=== PATIENT | female | born 1945 | race Caucasian/White ===

== ENCOUNTER → 2018-06-26 | Outpatient (CLI) | payer MEDICARE, BC | LOC: NC 11:06 | PROVIDERS: ATTEND Internal Medicine | DX: E03.9 Hypothyroidism, unspecified (principal) ==

== ENCOUNTER 2018-10-13 11:17 | Emergency (ER) | payer MEDICARE, BC ==
--- NOTE | 2018-10-13 11:47 | ED.PDOC ---
History of Present Illness - General Chief Complaint: Trauma Stated Complaint: fall Time Seen by Provider: 10/13/18 11:46 Source: patient Exam Limitations: no limitations - History of Present Illness Initial Comments: Velma Palacio 72 y/o female stated that she fell in her bathroom last night on her back and right side; helped her get up.Stated she several alcoholic beverages before incident.Came to er wirh dull paisn on he right shoulder,right lower rib cage,pelvis and hips.Denies any injuries elsewhere.No LOC,no dizziness ,no headaches,no blurry vision,no nausea/vomiting,speech fluent. Occurred: other - last night at home Severity: moderate Pain Location: chest, pelvis, back Method of Injury: fall Improving Factors: rest Worsening Factors: movement Loss of Consciousness: no loss of consciousness Associated Symptoms (Fall): other - see hpi Allergies/Adverse Reactions: Allergies NO KNOWN ALLERGY Allergy (Verified 10/23/15 06:36) Home Medications: Ambulatory Orders Acetamin W/Cod #3 Tab [Tylenol w/CODEINE #3] 1 ea PO TID PRN #14 tab 10/13/18 Citalopram Hydrobromide [Citalopram] 20 mg PO DAILY 10/13/18 Gabapentin 100 mg PO DAILY 10/13/18 Memantine [Namenda] 28 mg PO DAILY 10/13/18 Review of Systems - Review of Systems Musculoskeletal: States: see HPI All other Systems: Reviewed and Negative, No Change from Baseline Past Medical History (General) - Patient Medical History Hx Dementia: Yes Hx Hypertension: Yes Surgical History: cholecystectomy, other - hysterectomy,c-sections,knee bilateral - Vaccination History Hx Influenza Vaccination: Yes - Social History Hx Tobacco Use: No Hx Alcohol Use: Yes Hx Substance Use: No Hx Substance Use Treatment: No Hx Depression: No - Female History Patient : No Family Medical History - Family History Mother Family History: Unknown Living Status: Unknown Hx Cardiac Disease: Yes - dad Hx Family;Other: Alzheimerz Disease-sister Physical Exam - Physical Exam General Appearance: Alert, Comfortable, No apparent distress Head Injury: no evidence of injury Eye Exam: bilateral normal ENT Exam: hearing grossly normal, no evidence of ENT injury, no dental injury Neck Exam: non-tender, full range of motion, normal alignment, normal inspection Cardiovascular/Respiratory: regular rate, rhythm, no M/R/G, normal peripheral pulses, no JVD, other - tender to palpate right lower rib cage,no bruising Gastrointestinal/Abdominal: normal bowel sounds, non tender, soft, no organomegaly Back Exam: no CVA tenderness, no vertebral tenderness Extremity Exam: no evidence of injury, normal range of motion, no pedal edema, bony-point tenderness - both hips and pelvis Neurologic: no motor/sensory deficits, alert, oriented x 3 Skin Exam: normal color, warm/dry - Ritu Coma Score Best Eye Response (Tucker): (4) open spontaneously Best Verbal Response (Tucker): (5) oriented Best Motor Response (Tucker): (6) obeys commands Tucker Total: 15 Progress - Progress Progress: 10/13/18 12:13 Vital Signs - 8 hr 10/13/18 11:22 Temperature 98.2 F Pulse Rate [ 58 L left brachial] Respiratory 16 Rate Blood Pressure 160/88 [left brachial] O2 Sat by Pulse 97 Oximetry - Results/Orders Results/Orders: Discuss all x-ray result with patient - EKG/XRAY/CT XRAY: chest - ribs -subtle fracture right rib 9-10 Departure - Departure Clinical Impression: Pain of multiple sites Fall at home Qualifiers: Encounter type: initial encounter Qualified Code(s): W19.XXXA - Unspecified fall, initial encounter; Y92.009 - Unspecified place in unspecified non- institutional (private) residence as the place of occurrence of the external cau se Fracture of two ribs Qualifiers: Encounter type: initial encounter Fracture type: closed Laterality: right Qualified Code(s): S22.41XA - Multiple fractures of ribs, right side, initial encounter for closed fracture Time of Disposition: 13:40 Disposition: Discharge to Home or Self Care Condition: Fair Departure Forms: ED Discharge - Pt. Copy, Patient Portal Self Enrollment Instructions: Rib Fractures in Adults, Rib Fracture (DC) Referrals: CASI SIMMS [Primary Care Provider] - 1-2 Weeks Prescriptions: Acetamin W/Cod #3 Tab [Tylenol w/CODEINE #3] 1 ea PO TID PRN #14 tab PRN Reason: Pain Home Medications: Ambulatory Orders Acetamin W/Cod #3 Tab [Tylenol w/CODEINE #3] 1 ea PO TID PRN #14 tab 10/13/18 Citalopram Hydrobromide [Citalopram] 20 mg PO DAILY 10/13/18 Gabapentin 100 mg PO DAILY 10/13/18 Memantine [Namenda] 28 mg PO DAILY 10/13/18 Additional Instructions: May use over the counter ASPERCREME with LIDOCAINE Cream-apply to affected area 3 x a day until better;Follow up with primary MD 21 Oct 2018 for recheck
[2018-10-13 11:54] VITALS: TEMP 98.2
--- NOTE | 2018-10-13 12:56 | RAD ---
EXAM DESCRIPTION: Cervical Spine,3 Views CLINICAL HISTORY: fall/pain COMPARISON: None FINDINGS: 3 views of the cervical spine. Study partially limited due to patient body habitus. The visualized alignment of the cervical spine appears appropriate. No locked or perched facets are demonstrated. C1-C2 articulations are maintained. Multilevel degenerative disc height loss with endplate sclerosis and uncovertebral hypertrophy. Multilevel facet arthritis of the cervical spine. Precervical soft tissues are within normal limits. IMPRESSION: No acute radiographic abnormality. Complex multilevel degenerative spondylosis of the cervical spine. Electronically signed by: Erlin Gagnon MD 10/13/2018 12:54 PM CDT
--- NOTE | 2018-10-13 13:00 | RAD ---
Study: Frontal and oblique views of the ribs. Indication: fall/pain Comparison: None. Impression: Subtle fractures of the lateral aspects of the right ninth and 10th ribs noted. No pneumothorax identified. Electronically signed by: Edy Steen MD 10/13/2018 12:58 PM CDT
--- NOTE | 2018-10-13 13:00 | RAD ---
Single frontal view pelvis Indication: fall/pain Comparison: None. Impression: No displaced acute pelvic fracture identified. Evaluation for fracture is limited given the degree of osteopenia. If high clinical concern for acute fracture, correlation with MRI recommended given its greater sensitivity in the osteopenic patient. If the patient cannot tolerate MRI imaging or more urgent imaging is required, CT could be performed, however it is less sensitive in the osteopenic patient when compared to MRI. Mild bilateral hip osteoarthritis. Degenerative and postsurgical changes lower lumbar spine. Electronically signed by: Edy Steen MD 10/13/2018 12:58 PM CDT
--- NOTE | 2018-10-13 13:01 | RAD ---
Two-view right shoulder Indication: fall/pain Comparison: None. Impression: A.C. and glenohumeral joint alignment normal without acute fracture or dislocation. Moderate hypertrophic AC joint osteoarthritis. Mild glenohumeral joint osteoarthritis. Electronically signed by: Edy Steen MD 10/13/2018 12:59 PM CDT
--- NOTE | 2018-10-13 13:03 | RAD ---
EXAM DESCRIPTION: Hip Bilateral CLINICAL HISTORY: fall/pain COMPARISON: None. IMPRESSION: 2 views of the bilateral hips shows no acute fracture, focal bone destruction, or joint dislocation. Mild narrowing of the joint space and sclerotic changes to the superior lateral acetabulum bilaterally with mild osteoarthritic changes of both hips. Mild to moderate osteoarthritic changes of the sacroiliac joints are seen. Electronically signed by: Chang Mcfarlane MD 10/13/2018 1:01 PM CDT
[2018-10-13 14:14] VITALS: BP 129/88; O2SAT 96
== END 2018-10-13 12:50 | disposition home or self-care (01) ==
LOC: ER 11:17
DX: S22.41XA Multiple fractures of ribs, right side, initial encounter for closed fracture (principal); M25.511 Pain in right shoulder; M25.551 Pain in right hip; M25.552 Pain in left hip; R10.2 Pelvic and perineal pain; M47.812 Spondylosis without myelopathy or radiculopathy, cervical region; F03.90 Unspecified dementia, unspecified severity, without behavioral disturbance, psychotic disturbance, mood disturbance, and anxiety; I10 Essential (primary) hypertension; W19.XXXA Unspecified fall, initial encounter; Y92.002 Bathroom of unspecified non-institutional (private) residence as the place of occurrence of the external cause; Z79.899 Other long term (current) drug therapy

== ENCOUNTER 2019-05-12 21:10 | Emergency (ER) | payer MEDICARE, BC ==
[2019-05-12] MEDS ORDERED: HYDROcodone 5MG/APAP 325MG 1 EA TAB PO ONE (21:25)
--- NOTE | 2019-05-12 21:29 | ED.PDOC ---
History of Present Illness - General Stated Complaint: righ shoulder pain Time Seen by Provider: 05/12/19 21:25 Source: patient, RN notes reviewed, Vital Signs reviewed, family - History of Present Illness Initial Comments: this is patient with dementia, that present to the ER, with right shoulder pain, patient has a history of a bony spur, has pain in the past but not as severe, patient denies any trauma, gave her two tramadol with some improvement, patient has never seen an orthopedic surgeon. patient looks visibly in pain and uncomfortable Allergies/Adverse Reactions: Allergies NO KNOWN ALLERGY Allergy (Verified 10/23/15 06:36) Home Medications: Ambulatory Orders Acetamin W/Cod #3 Tab [Tylenol w/CODEINE #3] 1 ea PO TID PRN #14 tab 10/13/18 Citalopram Hydrobromide [Citalopram] 20 mg PO DAILY 10/13/18 Gabapentin 100 mg PO DAILY 10/13/18 Memantine [Namenda] 28 mg PO DAILY 10/13/18 Review of Systems - Review of Systems Constitutional: States: no symptoms reported EENTM: States: no symptoms reported Respiratory: States: no symptoms reported Cardiology: States: no symptoms reported Gastrointestinal/Abdominal: States: no symptoms reported Genitourinary: States: no symptoms reported Musculoskeletal: States: joint pain Neurological: States: no symptoms reported Endocrine: States: no symptoms reported Hematologic/Lymphatic: States: no symptoms reported Past Medical History (General) - Patient Medical History Hx Stroke: No Hx Dementia: Yes Hx of COPD: No Hx Hypertension: Yes Hx Diabetes: No - Vaccination History Hx Tetanus, Diphtheria Vaccination: No Hx Influenza Vaccination: Yes Hx Pneumococcal Vaccination: Yes - Social History Hx Tobacco Use: No Hx Alcohol Use: Yes Hx Substance Use: No Hx Substance Use Treatment: No Hx Depression: No - Female History Patient : No Family Medical History - Family History Mother Family History: Unknown Living Status: Unknown Hx Cardiac Disease: Yes - dad Hx Family;Other: Alzheimerz Disease-sister Physical Exam - Physical Exam General Appearance: Alert, Anxious, Other - in pain Eyes, Ears, Nose, Throat Exam: PERRL/EOMI Neck: non-tender, full range of motion, supple, normal inspection Cardiovascular/Respiratory: regular rate, rhythm, no M/R/G, normal peripheral pulses, no JVD, normal breath sounds Abdominal Exam: non-tender, no organomegaly, no hernia Shoulder Exam: normal inspection, limited ROM, pain Elbow/Forearm Exam: normal inspection, non-tender, no evidence of injury Wrist Exam: normal inspection, non-tender, no evidence of injury, normal ROM, abrasions Hand Exam: normal inspection, non-tender, no evidence of injury, normal ROM DTR: 4+: Biceps, left Neuro/Tendon: normal sensation, normal motor functions, normal tendon functions Mental Status: alert, oriented x 3 Skin Exam: normal color Progress - Progress Progress: 05/12/19 21:51 this is patient that present with right shoulder pain, patient has had a history of a bony spurs, patient looks uncomfortable but on physical exam no signs of infection and no locked joint. no clinical signs of septic joint patient x rays showed calcinosis and lot arthritis changes. Patient will be discharge [place] [id number] and follow up with dr Holcomb for possible joint inyections Departure - Departure Clinical Impression: Right shoulder pain Qualifiers: Chronicity: chronic Qualified Code(s): M25.511 - Pain in right shoulder; G89.29 - Other chronic pain Disposition: Discharge to Home or Self Care Condition: Good Instructions: Shoulder Sprain Referrals: CASI SIMMS [Primary Care Provider] - 1-2 Weeks Cesario Holcomb MD [Active Staff] - 1-2 Weeks Home Medications: Ambulatory Orders Acetamin W/Cod #3 Tab [Tylenol w/CODEINE #3] 1 ea PO TID PRN #14 tab 10/13/18 Citalopram Hydrobromide [Citalopram] 20 mg PO DAILY 10/13/18 Gabapentin 100 mg PO DAILY 10/13/18 Memantine [Namenda] 28 mg PO DAILY 10/13/18 Additional Instructions: alternate between ice and or warm compresses
[2019-05-12 21:42] VITALS: TEMP 97.8
--- NOTE | 2019-05-12 21:55 | RAD ---
EXAM: Shoulder,Right 2 or More Views HISTORY: Pain COMPARISON: Right shoulder two views 10/13/2018 TECHNIQUE: Right shoulder two views- AP external rotation and AP internal rotation FINDINGS: No fracture or dislocation. No significant sclerotic/lytic bone lesion. Soft tissues unremarkable. Right acromioclavicular joint space narrowing. IMPRESSION: No fracture. Electronically signed by: Stewart Mcnair MD 05/12/2019 9:53 PM [facility]
[2019-05-12 21:59] VITALS: BP 155/87; O2SAT 99
== END 2019-05-12 22:05 | disposition home or self-care (01) ==
LOC: ER 21:10
DX: M25.511 Pain in right shoulder (principal); G89.29 Other chronic pain; I10 Essential (primary) hypertension; F03.90 Unspecified dementia, unspecified severity, without behavioral disturbance, psychotic disturbance, mood disturbance, and anxiety; Z79.899 Other long term (current) drug therapy

== ENCOUNTER → 2019-09-21 | Outpatient (CLI) | payer MEDICARE, BC ==
--- NOTE | 2019-09-21 08:16 | RAD ---
Frontal, lateral, and oblique views of the left hand. Indication:HAND PAIN Comparison: None. Impression: Mild joint space narrowing of PIP and DIP joints of the hand. More pronounced mild to moderate osteoarthritis STT joint, first CMC joint, and first MCP joint. Mild spurring along the radial margin of the head/neck junction of the second metacarpal. Subtle chondrocalcinosis of the TFC. No marginal osseous erosions. No acute fracture. Osteopenia. If this is a new finding, DEXA scan recommended as well as evaluation for possible osteoporosis treatment. Soft tissues are intact without radiopaque foreign body. Electronically signed by: Edy Steen MD 09/21/2019 8:15 AM CDT
--- NOTE | 2019-09-21 08:17 | RAD ---
Frontal, lateral, and oblique views of the right hand. Indication:HAND PAIN Comparison: None. Impression: Mild joint space narrowing of PIP and DIP joints of the hand. More pronounced mild to moderate osteoarthritis STT joint, first CMC joint, and first MCP joint. Mild spurring along the radial margin of the head/neck junction of the second metacarpal. Subtle chondrocalcinosis of the TFC. No marginal osseous erosions. No acute fracture. Osteopenia. If this is a new finding, DEXA scan recommended as well as evaluation for possible osteoporosis treatment. Soft tissues are intact without radiopaque foreign body. Electronically signed by: Edy Steen MD 09/21/2019 8:15 AM CDT
== END ==
LOC: RAD 08:00
PROVIDERS: ATTEND Orthopaedic Surgery
DX: M19.041 Primary osteoarthritis, right hand (principal); M19.042 Primary osteoarthritis, left hand; M85.841 Other specified disorders of bone density and structure, right hand; M85.842 Other specified disorders of bone density and structure, left hand; M11.241 Other chondrocalcinosis, right hand; M11.242 Other chondrocalcinosis, left hand; M25.741 Osteophyte, right hand; M25.742 Osteophyte, left hand

== ENCOUNTER → 2019-11-05 | Outpatient (CLI) | payer MEDICARE, BC | LOC: LAB.O 11:47 | PROVIDERS: ATTEND Orthopaedic Surgery | DX: Z01.818 Encounter for other preprocedural examination (principal) ==

== ENCOUNTER 2019-11-18 05:33 | Day surgery (SDC) | payer MEDICARE, BC ==
[2019-11-18] MEDS ORDERED: LACTATED RINGERS 1,000 ML ONE (06:26)
[2019-11-18] MEDS ORDERED: SODIUM CHL 0.9% 100ML MINI-BAG 100 ML IVPB ONE (06:26)
[2019-11-18] MEDS ORDERED: ceFAZolin SODIUM 1 GM VIAL ONE ×2 (06:26→11:23)
[2019-11-18] MEDS ORDERED: PROPOFOL 200 MG/20 ML VIAL IV ONE (07:00)
[2019-11-18] MEDS ORDERED: LIDOCAINE 1% 10 ML VIAL INJ ONE ×3 (07:00→12:39)
[2019-11-18] MEDS ORDERED: BUPIVACAINE 0.5% 30 ML VIAL INJ ONE ×2 (11:23→12:39)
[2019-11-18] MEDS ORDERED: VANCOMYCIN HCL INJ 1,000 MG VIAL IVPB ONE ×2 (11:23→12:39)
[2019-11-18] MEDS ORDERED: ceFAZolin SODIUM 1 GM VIAL IRRIG ONE (12:39)
[2019-11-18 14:38] VITALS: BP 155/94; TEMP 97; O2SAT 98
--- NOTE | 2019-11-20 08:14 | OP ---
DATE OF PROCEDURE: 11/18/19 PREOPERATIVE DIAGNOSIS: 1. Left carpal tunnel syndrome. POSTOPERATIVE DIAGNOSIS: 1. Left carpal tunnel syndrome. PROCEDURE: 1. Carpal tunnel release. SURGEON: Cesario Holcomb MD. APPLICATIONS ENGINEER MANUFACTURING: Margarito Ortiz CST, SA-C. ANESTHESIA: Local with sedation. COMPLICATIONS: None. FINDINGS: 1. Thickening of the transverse carpal ligament. 2. Narrowing of the median nerve across the carpal tunnel. INDICATION: Ms. Palacio has a history of symptoms consistent with carpal tunnel syndrome. Unfortunately, she failed to gain relief with conservative measures and, therefore, has requested operative intervention. After discussing the risks, benefits and alternatives to that, the patient has given informed consent for carpal tunnel release. PROCEDURE: The patient was brought to the Operating Room and placed in the supine position. Sedation was administered and local anesthetic was injected into the operative. Following the injection of local anesthetic, the arm was sterilely prepped and draped. A longitudinal incision was made directly overlying the transverse carpal ligament and blunt dissection was carried down to the ligament. The transverse carpal ligament was sharply transected along its length and a [place] elevator was used to ensure complete release of the ligament. Once release had been confirmed, the wound was thoroughly irrigated and the wound was closed with Nylon suture. A sterile dressing was placed and the patient was taken to the Day Surgery Unit. POSTOPERATIVE PLAN: The patient has been encouraged to do range of motion of the digits and will followup with us in two days. #[id number] MTDD
== END 2019-11-18 14:30 | disposition home or self-care (01) ==
LOC: AMB 05:33
PROVIDERS: ATTEND Orthopaedic Surgery
DX: G56.02 Carpal tunnel syndrome, left upper limb (principal); C50.919 Malignant neoplasm of unspecified site of unspecified female breast; E66.9 Obesity, unspecified; K21.9 Gastro-esophageal reflux disease without esophagitis; F03.90 Unspecified dementia, unspecified severity, without behavioral disturbance, psychotic disturbance, mood disturbance, and anxiety; Z79.899 Other long term (current) drug therapy
CPT/HCPCS: 01810; 36415; 64721; 80053; 80307; 85025; 93005; J0690; J3370; J3490; J7050; J7120

== ENCOUNTER 2019-12-09 06:05 | Day surgery (SDC) | payer MEDICARE, BC ==
[2019-12-09] MEDS ORDERED: SODIUM CHL 0.9% 100ML MINI-BAG 100 ML IVPB ONE (06:31)
[2019-12-09] MEDS ORDERED: ceFAZolin SODIUM 1 GM VIAL ONE ×2 (06:31→09:35)
[2019-12-09] MEDS ORDERED: LACTATED RINGERS 1,000 ML ONE (06:31)
[2019-12-09] MEDS ORDERED: LIDOCAINE 1% 10 ML VIAL INJ ONE ×3 (07:00→10:01)
[2019-12-09] MEDS ORDERED: PROPOFOL 200 MG/20 ML VIAL IV ONE ×2 (07:00)
[2019-12-09] MEDS ORDERED: VANCOMYCIN HCL INJ 1,000 MG VIAL IVPB ONE ×2 (09:35→10:01)
[2019-12-09] MEDS ORDERED: BUPIVACAINE 0.25% INJ 30 ML VIAL INJ ONE ×2 (09:35→10:01)
[2019-12-09] MEDS ORDERED: ceFAZolin SODIUM 1 GM VIAL IRRIG ONE (10:01)
[2019-12-09] MEDS ORDERED: HYDROcodone 5MG/APAP 325MG 1 EA TAB PO ONE (11:00)
[2019-12-09] MEDS ORDERED: HYDROcodone 5MG/APAP 325MG 1 EA TAB ONE (11:04)
[2019-12-09 11:48] VITALS: BP 173/85; TEMP 97.2; O2SAT 100
--- NOTE | 2019-12-10 08:09 | OP ---
DATE OF PROCEDURE: 12/09/19 PREOPERATIVE DIAGNOSIS: 1. Right carpal tunnel syndrome. 2. Right trigger thumb. POSTOPERATIVE DIAGNOSIS: 1. Right carpal tunnel syndrome. 2. Right trigger thumb. PROCEDURE: 1. Carpal tunnel release. 2. Trigger thumb release. SURGEON: Cesario Holcomb MD. MENTAL TELEPATHIST: Margarito Ortiz CST, SA-C. ANESTHESIA: Local with sedation. COMPLICATIONS: None. FINDINGS: 1. Thickening of the transverse carpal ligament and narrowing of the median nerve across the carpal tunnel. 2. Triggering at the A1 claudia of the thumb. INDICATION: Ms. Palacio has a history of pain and numbness of the hand. Her symptoms were consistent with carpal tunnel syndrome and trigger thumb. Because of her ongoing symptoms, she has requested operative intervention. After discussing the risks, benefits and alternatives to that, the patient has given informed consent for that. PROCEDURE: The patient was brought to the Operating Room and placed in the supine position. Sedation was administered and local anesthetic was injected into the operative area under sterile conditions. After the injection of anesthetic, the arm was sterilely prepped and draped. A longitudinal incision was made directly overlying the transverse carpal ligament and blunt dissection was carried down to the ligament. The transverse carpal ligament was sharply transected along its length and a [place] elevator was used to ensure complete release of the ligament. Once release had been confirmed, the wound was thoroughly irrigated and the wound was closed with Nylon suture. Attention was focused on the thumb. A transverse incision was made directly overlying the A1 claudia. Blunt dissection was carried down to the A1 claudia, which was sharply incised. A [place] elevator was passed both proximally and distally to ensure complete release. After complete release had been confirmed, the wound was thoroughly irrigated and closed with Nylon suture. Sterile dressings were placed and the patient was taken to the Day Surgery Unit. POSTOPERATIVE PLAN: The patient has been encouraged to do range of motion of the digits and will followup with us in two days. #[id number] [facility]
== END 2019-12-09 11:42 | disposition home or self-care (01) ==
LOC: AMB 06:05
PROVIDERS: ATTEND Orthopaedic Surgery
DX: G56.01 Carpal tunnel syndrome, right upper limb (principal); M65.311 Trigger thumb, right thumb; K21.9 Gastro-esophageal reflux disease without esophagitis; F03.90 Unspecified dementia, unspecified severity, without behavioral disturbance, psychotic disturbance, mood disturbance, and anxiety; E07.9 Disorder of thyroid, unspecified; Z79.899 Other long term (current) drug therapy
CPT/HCPCS: 01810; 26055; 64721; 80307; J0690; J3370; J3490; J7050; J7120

== ENCOUNTER → 2020-02-16 | Outpatient (CLI) | payer MEDICARE, BC | LOC: GMAL 10:53 | PROVIDERS: ATTEND Family Medicine | DX: D51.3 Other dietary vitamin B12 deficiency anemia (principal); E55.9 Vitamin D deficiency, unspecified; Z79.899 Other long term (current) drug therapy ==

== ENCOUNTER 2020-02-29 15:27 | Observation (INO) | payer MEDICARE, BC ==
[2020-02-29] MEDS ORDERED: ASPIRIN (CHEWABLE) 81 MG TAB PO ONE (16:15)
--- NOTE | 2020-02-29 16:15 | ED.PDOC ---
History of Present Illness - General Chief Complaint: Chest Pain/NV Stated Complaint: chest pain Time Seen by Provider: 02/29/20 15:37 - History of Present Illness Initial Comments: 74 yo F with a hx of dementia comes in with with c/c of chest pain. Pain started at rest, states is was sharp at first, but now feels like pressure. some nausea, no emesis. radiates to bilateral shoulders. Denies any cardiac history. no syncope. No jaw pain. no change in vision. Has not tried anything for pain. Allergies/Adverse Reactions: Allergies NO KNOWN ALLERGY Allergy (Verified 02/29/20 16:06) Home Medications: Ambulatory Orders Memantine [Namenda] 28 mg PO DAILY 10/13/18 Anastrozole [Arimidex] 1 mg PO DAILY 05/12/19 Galantamine ER [Razadyne ER] 16 mg PO DAILY 05/12/19 Levothyroxine Sodium 25 mcg PO DAILY 05/12/19 Solifenacin Succinate 5 mg PO DAILY 05/12/19 Cyanocobalamin [Vitamin B-12] 1,250 mcg SL DAILY 11/16/19 Doxepin HCl [Doxepin Hydrochloride] 75 mg PO BEDTIME 11/16/19 Meloxicam 15 mg PO DAILY 11/16/19 Sertraline HCl [Zoloft] 50 mg PO BEDTIME 11/16/19 Divalproex Sodium [Divalproex Sodium Dr] 125 mg PO BID 12/07/19 Review of Systems - Review of Systems Constitutional: Denies: chills, fever, malaise EENTM: Denies: eye pain, blurred vision, throat pain, mouth pain Respiratory: Denies: cough, orthopnea, stridor Cardiology: States: chest pain. Denies: edema, palpitations, syncope Gastrointestinal/Abdominal: States: nausea. Denies: abdominal pain, diarrhea, vomiting Genitourinary: Denies: discharge, frequency Musculoskeletal: Denies: back pain, muscle pain Skin: Denies: rash Neurological: Denies: headache, numbness, paresthesia, tingling, tremors Endocrine: Denies: unexplained weight gain, unexplained weight loss Hematologic/Lymphatic: Denies: easy bleeding, easy bruising Past Medical History (General) - Patient Medical History Hx Stroke: No Hx Dementia: Yes Hx of COPD: No Hx Congestive Heart Failure: No Hx Hypertension: Yes Hx Diabetes: No Hx Cancer: Yes Hx MRSA: No Surgical History: cholecystectomy - Vaccination History Hx Tetanus, Diphtheria Vaccination: No Hx Influenza Vaccination: Yes Hx Pneumococcal Vaccination: Yes - Social History Hx Tobacco Use: No Hx Alcohol Use: Yes Hx Substance Use: No Hx Substance Use Treatment: No Hx Depression: No - Activities of Daily Living Hospice Agency (if applicable):: None - Female History Patient is a Female of Child Bearing Age (10 -59 yrs old): No Patient : No Family Medical History - Family History Mother Family History: Unknown Living Status: Unknown Hx Cardiac Disease: Yes - dad Hx Family;Other: Alzheimerz Disease-sister Physical Exam - Physical Exam General Appearance: Alert, Comfortable, No apparent distress, Well Developed, Well Groomed, Well Hydrated, Well Nourished Eyes, Ears, Nose, Throat Exam: PERRL/EOMI, normal ENT inspection Neck: non-tender, full range of motion, supple, normal inspection, other - no carotid bruit. 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 EKG shows hr 65, nsr, nonspecific t wave changes. no stemi. normal intervals. no prior for comparison. CXR shows no acute pathology. patient was given 324 mg aspirin and 0.4 nitro. pain improved. Cardiac score 4. The data reviewed when caring for this patient included: nurse notes, prior records, etc. The history and assessments from nurses notes were reviewed and considered, and the patient's home medication list was also reviewed and considered. My assessment and the results of testing completed here in the ED were discussed with the patient/family. All questions were answered, and they express understanding of my assessment and the plan. Discussed case with Deny Gutierrez who accepted patient for admission. patient was transferred to floor instable condition. Edel Pak DO #[id number] - Results/Orders Results/Orders: Laboratory Results WBC 7.9 K/mm3 (4.8-10.8) 02/29/20 15:45 RBC 4.46 M/mm3 (4.20-5.40) 02/29/20 15:45 Hgb 13.8 gm/dL (12.0-16.0) 02/29/20 15:45 Hct 40.4 % (36.0-47.0) 02/29/20 15:45 MCV 90.6 fl (81.0-99.0) 02/29/20 15:45 MCH 31.0 pg (27.0-31.0) 02/29/20 15:45 MCHC 34.2 g/dL (33.0-37.0) 02/29/20 15:45 RDW 13.1 % (11.5-14.5) 02/29/20 15:45 Plt Count 125 K/mm3 (130-400) L 02/29/20 15:45 MPV 10.4 fl (7.40-10.4) 02/29/20 15:45 Absolute Neuts (auto) 4.80 K/uL (1.8-6.8) 02/29/20 15:45 Absolute Lymphs (auto) 2.10 K/uL (1.0-3.4) 02/29/20 15:45 Absolute Monos (auto) 0.70 K/uL (0.2-0.8) 02/29/20 15:45 Absolute Eos (auto) 0.20 K/uL (0.0-0.4) 02/29/20 15:45 Absolute Basos (auto) 0.10 K/uL (0.0-0.1) 02/29/20 15:45 Neutrophils % 61.3 % (42.0-78.0) 02/29/20 15:45 Lymphocytes % 26.7 % (20.0-50.0) 02/29/20 15:45 Monocytes % 8.4 % (2.0-9.0) 02/29/20 15:45 Eosinophils % 2.7 % (1.0-5.0) 02/29/20 15:45 Basophils % 0.9 % (0.0-2.0) 02/29/20 15:45 PT 10.1 SECONDS (9.0-10.9) 02/29/20 15:45 INR 1.02 (0.9-1.15) 02/29/20 15:45 PTT (SP) 19.5 SECONDS (21.8-31.6) L 02/29/20 15:45 Sodium 139 mmol/L (135-145) 02/29/20 15:45 Potassium 3.3 mmol/L (3.6-5.0) L 02/29/20 15:45 Chloride 100 mmol/L (101-111) L 02/29/20 15:45 Carbon Dioxide 29 mmol/L (21-31) 02/29/20 15:45 Anion Gap 13.3 (12-18) 02/29/20 15:45 BUN 20 mg/dL (7-18) H 02/29/20 15:45 Creatinine 1.00 mg/dL (0.6-1.3) 02/29/20 15:45 BUN/Creatinine Ratio 20.0 (10-20) 02/29/20 15:45 Random Glucose 100 mg/dL (70-105) 02/29/20 15:45 Serum Osmolality 280.2 mOsm/L (275-295) 02/29/20 15:45 Calcium 8.8 mg/dL (8.4-10.2) 02/29/20 15:45 Magnesium 2.0 mg/dL (1.8-2.5) 02/29/20 15:45 Total Bilirubin 1.0 mg/dL (0.2-1.0) 02/29/20 15:45 AST 26 IU/L (10-42) 02/29/20 15:45 ALT 17 IU/L (10-60) 02/29/20 15:45 Alkaline Phosphatase 63 IU/L (42-121) 02/29/20 15:45 Troponin I < 0.02 ng/mL (0.01-0.05) 02/29/20 15:45 B-Natriuretic Peptide 27.1 pg/ml (0-100) 02/29/20 15:45 Serum Total Protein 8.4 gm/dL (6.4-8.2) H 02/29/20 15:45 Albumin 3.9 g/dl (3.2-5.5) 02/29/20 15:45 Globulin 4.5 gm/dL (2.3-3.5) H 02/29/20 15:45 Albumin/Globulin Ratio 0.9 (1.1-1.9) L 02/29/20 15:45 Departure - Departure Clinical Impression: Chest pain Qualifiers: Chest pain type: unspecified Qualified Code(s): R07.9 - Chest pain, unspecified Time of Disposition: 16:56 Disposition: Admit Patient Home Medications: Ambulatory Orders Memantine [Namenda] 28 mg PO DAILY 10/13/18 Anastrozole [Arimidex] 1 mg PO DAILY 05/12/19 Galantamine ER [Razadyne ER] 16 mg PO DAILY 05/12/19 Levothyroxine Sodium 25 mcg PO DAILY 05/12/19 Solifenacin Succinate 5 mg PO DAILY 05/12/19 Cyanocobalamin [Vitamin B-12] 1,250 mcg SL DAILY 11/16/19 Doxepin HCl [Doxepin Hydrochloride] 75 mg PO BEDTIME 11/16/19 Meloxicam 15 mg PO DAILY 11/16/19 Sertraline HCl [Zoloft] 50 mg PO BEDTIME 11/16/19 Divalproex Sodium [Divalproex Sodium Dr] 125 mg PO BID 12/07/19 Decision To Admit - Decistion To Admit Decision to Admit Date: 03/01/20 Decision to Admit Time: 16:40
--- NOTE | 2020-02-29 17:22 | RAD ---
EXAM: XR Chest, 2 Views CLINICAL HISTORY: The patient is 74 years old and is Female; cp TECHNIQUE: Two views of the chest. COMPARISON: No relevant prior studies available. FINDINGS: Lungs: Unremarkable. No consolidation. Pleural space: Unremarkable. No pneumothorax. Heart: Unremarkable. No cardiomegaly. Mediastinum: Unremarkable. Bones/joints: Old left rib fractures. Degenerative changes in the spine. Upper abdomen: No free air in the visualized upper abdomen. IMPRESSION: No acute cardiopulmonary process identified. Electronically signed by: Evangelina Gooden MD 02/29/2020 5:21 PM CDT
[2020-02-29] MEDS ORDERED: POTASSIUM CHLORIDE 20 MEQ TAB PO ONE (18:51)
[2020-02-29] MEDS ORDERED: NITROGLYCERIN 0.4 MG 25 EA TAB SL PRN (18:54)
[2020-02-29] MEDS ORDERED: ACETAMINOPHEN 325 MG TAB PO PRN (18:54)
[2020-02-29] MEDS ORDERED: SODIUM CHLORIDE 0.9% (FLUSH) 10 ML SYG IV PRN (18:54)
[2020-02-29] MEDS ORDERED: MORPHINE SULFATE INJ 10 MG/ML VIAL IV PRN (18:54)
[2020-02-29] MEDS ORDERED: IV SET AND CAP CHANGE INJ INJ SCH (19:00)
[2020-02-29] MEDS ORDERED: DIVALPROEX SODIUM DR 250 MG TAB ONE (19:30)
--- NOTE | 2020-02-29 19:38 | SSS ---
SUPERVISING PHYSICIAN: Les Naranjo M.D. CHIEF COMPLAINT: Chest pain. HISTORY OF PRESENT ILLNESS: This is a 74 year-old female who came into the Emergency Room for substernal chest pain. Unfortunately the patient has advanced dementia and is not a really good historian, and does not really give a good history. Her is at the bedside. He told me that the pain was substernal in the middle, did not radiate. No small bowel obstruction or radiation of the pain. She came to the Emergency Room and had an EKG which showed some nonspecific ST changes and the troponin was negative. But given her age and unreliability, she was referred for chest pain rule out. Labs were pretty much unremarkable in the Emergency Room except for a low potassium level. As stated before, the troponin was negative. BNP was normal. Chest x-ray that was done was unremarkable as well. PAST MEDICAL HISTORY: 1. Hypertension. 2. Obesity. 3. Advanced dementia. 4. Hypothyroidism. PAST SURGICAL HISTORY: 1. Cholecystectomy. 2. Carpal tunnel release. CURRENT MEDICATIONS: Please see Med. Rec. list once they are verified in the computer. ALLERGIES: NO KNOWN DRUG ALLERGIES. FAMILY HISTORY: Dementia and cardiac disease in her father, according to her . SOCIAL HISTORY: Occasional alcohol use. No smoking. No illicit drugs. REVIEW OF SYSTEMS: CONSTITUTIONAL: No fever or chills. No recent weight loss or weight gain. HEENT: No headaches, vision changes, ear pain, nasal congestion or throat pain. RESPIRATORY: No cough, hemoptysis or pleuritic chest pain. CARDIOVASCULAR: Positive for chest pain. No palpitations, no peripheral edema. GASTROINTESTINAL: No nausea, vomiting, diarrhea, constipation or abdominal pain. GENITOURINARY: No dysuria, frequency or flank pain. ENDOCRINE: No polydipsia, polyuria or polyphagia. No heat or cold intolerance. MUSCULOSKELETAL: No joint pain, joint swelling or muscle cramps. HEMATOLOGIC: No easy bruising and no transfusion reaction. NEUROLOGIC: No seizures, syncope or paresthesias. PHYSICAL EXAMINATION: VITAL SIGNS: 164/81, heart rate 67, respiratory rate 20, temperature 97.8, oxygen saturation 97%. GENERAL: Ms. Palacio is a 74 year-old female in no active distress currently. NEUROLOGIC: The patient is alert but confused and that is her normal baseline. CARDIOVASCULAR: The patient has a regular rate and rhythm. Normal S1 and S2. LUNGS: Clear to auscultation bilaterally. ABDOMEN: Soft. Positive bowel sounds. Obese. EXTREMITIES: Lower extremities with no edema. 2+ pulses. Capillary refill is less than 2 seconds. ASSESSMENT: 1. Chest pain, rule out acute coronary syndrome. 2. Hypertension. 3. Advanced dementia. 4. Hypokalemia. PLAN: The patient will be admitted for chest pain rule out with serial cardiac enzymes and EKGs. In the event these are normal, she will be discharged to followup with her primary care physician for possible further workup with a stress test. I am also going to order an echocardiogram in the morning so that we can get that out of the way, but her BNP was normal. I will resume her home medications and put her on continuous cardiac monitoring for her stay here as well. ADDENDUM: All cardiac enzymes were negative with no acute EKG changes noted. She will be discharged today in stable condition to be followed by Dr. Frias. She may need an outpatient stress test. Echocardiogram is being completed prior to discharge today. I did find her TSH to be a little elevated, so Dr. Frias may need to adjust her levothyroxine. I instructed her to take Aspirin 81mg daily as well. #[id number] MTDD
[2020-02-29] MEDS: DIVALPROEX SODIUM 125 MG PO SCH (20:34)
[2020-02-29] MEDS: SODIUM CHLORIDE 0.9% (FLUSH) 10 ML SYG IV SCH (20:35)
[2020-02-29] MEDS ORDERED: DOXEPIN HCL 75 MG PO SCH (21:00)
[2020-02-29] MEDS ORDERED: SERTRALINE HCL 50 MG TAB PO SCH (21:00)
[2020-03-01] MEDS: LEVOTHYROXINE SODIUM 0.025 MG TAB PO SCH ×2 (06:22→07:14)
[2020-03-01] MEDS ORDERED: PANTOPRAZOLE SODIUM TAB 40 MG PO SCH (06:30)
[2020-03-01 08:16] VITALS: BP 128/75; TEMP 97.5; O2SAT 95
[2020-03-01] MEDS ORDERED: MELOXICAM 7.5 MG TAB PO SCH (09:00)
[2020-03-01] MEDS ORDERED: LEVOTHYROXINE SODIUM 0.025 MG TAB PO SCH (09:00)
[2020-03-01] MEDS ORDERED: TOLTERODINE TARTRATE ER 4 MG CAP PO SCH (09:00)
[2020-03-01] MEDS ORDERED: NON-FORMULARY MEDICATION 1 EA MIS (Anastrozole [Arimidex] 1 MG) PO SCH (09:00)
[2020-03-01] MEDS ORDERED: ASPIRIN TABLET 325 MG TAB PO SCH (09:00)
[2020-03-01] MEDS ORDERED: CYANOCOBALAMIN 1,000 MCG TAB PO SCH (09:00)
[2020-03-01] MEDS ORDERED: GALANTAMINE 16 MG PO SCH (09:00)
[2020-03-01] MEDS ORDERED: MEMANTINE 10 MG TAB PO SCH (09:00)
[2020-03-01] MEDS: DIVALPROEX SODIUM 125 MG PO SCH (10:27)
[2020-03-01] MEDS: SODIUM CHLORIDE 0.9% (FLUSH) 10 ML SYG IV SCH (10:28)
[2020-03-02] MEDS ORDERED: LEVOTHYROXINE SODIUM 0.025 MG TAB PO SCH (06:30)
== END 2020-03-01 09:59 | disposition home or self-care (01) ==
LOC: ER 15:27 → MS 17:44
PROVIDERS: ADMIT Nurse Practitioner; ATTEND Nurse Practitioner
DX: R07.2 Precordial pain (principal); I10 Essential (primary) hypertension; F03.90 Unspecified dementia, unspecified severity, without behavioral disturbance, psychotic disturbance, mood disturbance, and anxiety; E87.6 Hypokalemia; E03.9 Hypothyroidism, unspecified; E66.9 Obesity, unspecified; Z68.41 Body mass index [BMI] 40.0-44.9, adult; Z79.1 Long term (current) use of non-steroidal anti-inflammatories (NSAID); Z79.890 Hormone replacement therapy; Z79.899 Other long term (current) drug therapy; Z90.49 Acquired absence of other specified parts of digestive tract; Z85.9 Personal history of malignant neoplasm, unspecified; Z82.49 Family history of ischemic heart disease and other diseases of the circulatory system; Z82.0 Family history of epilepsy and other diseases of the nervous system
CPT/HCPCS: A4216; 80048; 82553 ×2; 80053; 80061; 36415 ×3; 81001; 85025; 82550 ×2; 84439; 83735; 85730; 85610; 84443; 84484 ×3; 83880; 71046; 94760; 99285; 93306; 93005 ×3; G0378

== ENCOUNTER → 2020-05-23 | Outpatient (CLI) | payer MEDICARE, BC | LOC: GMAL 10:34 | PROVIDERS: ATTEND Family Medicine | DX: E03.9 Hypothyroidism, unspecified (principal); E55.9 Vitamin D deficiency, unspecified ==

== ENCOUNTER 2020-07-17 00:49 | Emergency (ER) | payer MEDICARE, BC ==
[2020-07-17] MEDS ORDERED: ALUM & MAG HYDROX-SIMETHICONE 30 ML, LIDOCAINE VISCOUS 2% 15 ML PO ONE ×2 (01:03)
[2020-07-17] MEDS ORDERED: ONDANSETRON ODT 8 MG TAB SL ONE (01:03)
--- NOTE | 2020-07-17 02:12 | ED.PDOC ---
History of Present Illness - General Chief Complaint: Abdominal Pain Stated Complaint: mid upper abd pain Time Seen by Provider: 07/17/20 00:56 Source: patient, family Exam Limitations: clinical condition - History of Present Illness Initial Comments: The patient is a 74-year-old female presenting to the emergency room secondary to epigastric discomfort for about the last hour and a half. Very mild nausea but no vomiting. No chest pain. No syncope. The patient does have some dementia. She is uncertain if eating makes the discomfort worse. There is epigastric discomfort to palpation. No definite obvious palpable mass. The patient is very anxious. Timing/Duration: 1-3 hours Severity: moderate Improving Factors: nothing Worsening Factors: nothing Associated Symptoms: nausea/vomiting Allergies/Adverse Reactions: Allergies NO KNOWN ALLERGY Allergy (Verified 02/29/20 16:06) Home Medications: Ambulatory Orders Memantine [Namenda] 28 mg PO DAILY 10/13/18 Anastrozole [Arimidex] 1 mg PO DAILY 05/12/19 Galantamine ER [Razadyne ER] 16 mg PO DAILY 05/12/19 Levothyroxine Sodium 25 mcg PO DAILY 05/12/19 Solifenacin Succinate 5 mg PO DAILY 05/12/19 Cyanocobalamin [Vitamin B-12] 1,250 mcg SL DAILY 11/16/19 Doxepin HCl [Doxepin Hydrochloride] 75 mg PO BEDTIME 11/16/19 Meloxicam 15 mg PO DAILY 11/16/19 Sertraline HCl [Zoloft] 50 mg PO BEDTIME 11/16/19 Divalproex Sodium [Divalproex Sodium Dr] 125 mg PO BID 12/07/19 Famotidine [Pepcid Tab] 20 mg PO BID #60 tab 07/17/20 Ondansetron Odt [Zofran ODT] 4 mg PO Q8HR PRN #5 tab 07/17/20 Sucralfate Tab [Carafate Tab] 1 gm PO QID #120 tab 07/17/20 Review of Systems - Review of Systems Constitutional: States: no symptoms reported EENTM: States: no symptoms reported Respiratory: States: no symptoms reported Cardiology: States: no symptoms reported Gastrointestinal/Abdominal: States: abdominal pain, nausea, other - The patient is unsure if she has had constipation Genitourinary: States: no symptoms reported Musculoskeletal: States: no symptoms reported Skin: States: no symptoms reported Neurological: States: see HPI Endocrine: States: no symptoms reported All other Systems: No Change from Baseline Past Medical History (General) - Patient Medical History Hx Stroke: No Hx Dementia: Yes Hx of COPD: No Hx Congestive Heart Failure: No Hx Hypertension: Yes Hx Diabetes: No Hx Cancer: Yes Hx MRSA: No - Vaccination History Hx Tetanus, Diphtheria Vaccination: No Hx Influenza Vaccination: Yes Hx Pneumococcal Vaccination: Yes - Social History Hx Tobacco Use: No Hx Alcohol Use: Yes Hx Substance Use: No Hx Substance Use Treatment: No Hx Depression: No - Female History Patient : No Family Medical History - Family History Mother Family History: Unknown Living Status: Unknown Hx Cardiac Disease: Yes - dad Hx Family;Other: Alzheimerz Disease-sister Physical Exam - Physical Exam General Appearance: Alert, Anxious, No apparent distress Eye Exam: bilateral normal Ears, Nose, Throat: hearing grossly normal, normal pharynx Neck: full range of motion, supple Respiratory: lungs clear, normal breath sounds, no respiratory distress, no accessory muscle use Cardiovascular/Chest: normal peripheral pulses, regular rate, rhythm, no edema Peripheral Pulses: radial,right: 2+, radial,left: 2+ Gastrointestinal/Abdominal: soft, other - Epigastric discomfort to palpation. No true rebound or peritoneal signs. No evidence of trauma. No obvious palpable mass. 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 She obviously does have some dementia. Skin Exam: normal color Comments: Vital Signs - 24 hr 07/17/20 00:56 Temperature 97.1 F L Pulse Rate [ 58 L left] Respiratory 16 Rate Blood Pressure 163/67 [left] O2 Sat by Pulse 97 Oximetry Progress - Progress Progress: 07/17/20 05:33 The patient is a 74-year-old female presented emergency room secondary to what is essentially acute gastritis. The patient has responded to GI medications well. The patient will be written for Carafate and Pepcid for the next month. She also be written for Zofran for as needed use to control any nausea or vomiting. The patient does have some significant constipation and I would recommend taking MiraLAX on a daily basis for at least the next week. She was given a dose of milk of magnesia here tonight. As an incidental finding in the work-up for the abdominal pain, it is found that the patient has pulmonary nodules, with the largest being in the left lower lobe at approximately 3.7 cm in diameter. Additional work-up is recommended based on appearance. The patient needs to follow back up with her primary care doctor towards a middle part of next week to set up follow-up for this as well as for the gastritis. She is to keep her self well-hydrated. Maintain a bland diet. ER warnings are given. eric grande [id number] - Results/Orders Results/Orders: EKG shows sinus bradycardia with first-degree AV block at 56 bpm. Normal axis. Normal R wave progression. No ST segment or T wave changes indicative of acute ischemia. Normal QT interval. CT scan of the abdomen pelvis with IV contrast shows a 6.5 cm hepatic cyst. There is also a left lower lobe nodule measuring 3.7 x 2.2 cm with multiple smaller nodules in bilateral lung bases. More than 40 in total estimated. These are concerning in appearance for primary cancer or malignancy. Imaging also indicates there is a fair amount of constipation. No other obvious acute pathology. See report for details Laboratory Tests 07/17/20 07/17/20 07/17/20 01:30 01:30 01:30 WBC 7.7 RBC 4.13 L Hgb 12.5 Hct 36.9 MCV 89.5 MCH 30.3 MCHC 33.8 RDW 13.2 Plt Count 110 L MPV 10.3 Absolute Neuts (auto) 3.70 Absolute Lymphs (auto) 3.10 Absolute Monos (auto) 0.60 Absolute Eos (auto) 0.20 Absolute Basos (auto) 0.10 Neutrophils % 48.6 Lymphocytes % 40.2 Monocytes % 7.7 Eosinophils % 2.7 Basophils % 0.8 PT INR PTT (SP) D-Dimer, Quantitative Sodium 138 Potassium 3.4 L Chloride 102 Carbon Dioxide 27 Anion Gap 12.4 BUN 15 Creatinine 0.94 BUN/Creatinine Ratio 16.0 Random Glucose 88 Serum Osmolality 275.9 Calcium 8.7 Total Bilirubin 0.7 AST 18 ALT 11 Alkaline Phosphatase 55 Creatine Kinase 82 CK-MB (CK-2) 0.9 CK-MB (CK-2) % Not Reportable Troponin I < 0.02 B-Natriuretic Peptide 29.0 Serum Total Protein 7.2 Albumin 3.5 Globulin 3.7 H Albumin/Globulin Ratio 0.9 L Amylase 65 Lipase 56 H 07/17/20 01:30 WBC RBC Hgb Hct MCV MCH MCHC RDW Plt Count MPV Absolute Neuts (auto) Absolute Lymphs (auto) Absolute Monos (auto) Absolute Eos (auto) Absolute Basos (auto) Neutrophils % Lymphocytes % Monocytes % Eosinophils % Basophils % PT 10.3 INR 1.04 PTT (SP) 23.2 D-Dimer, Quantitative 1210.0 H* Sodium Potassium Chloride Carbon Dioxide Anion Gap BUN Creatinine BUN/Creatinine Ratio Random Glucose Serum Osmolality Calcium Total Bilirubin AST ALT Alkaline Phosphatase Creatine Kinase CK-MB (CK-2) CK-MB (CK-2) % Troponin I B-Natriuretic Peptide Serum Total Protein Albumin Globulin Albumin/Globulin Ratio Amylase Lipase Departure - Departure Clinical Impression: Pulmonary nodules/lesions, multiple Gastritis Qualifiers: Gastritis type: superficial Chronicity: acute Gastritis bleeding: without bleeding Qualified Code(s): K29.00 - Acute gastritis without bleeding Disposition: Discharge to Home or Self Care Condition: Fair Departure Forms: ED Discharge - Pt. Copy, Patient Portal Self Enrollment Instructions: DI for Abdominal Pain-Adult, Gastritis ED Diet: bland diet Activity: increase activity as tolerated Referrals: Donnie Frias III, MD [Primary Care Provider] - 1-2 Weeks Prescriptions: Ondansetron Odt [Zofran ODT] 4 mg PO Q8HR PRN #5 tab PRN Reason: Nausea--Moderate Sucralfate Tab [Carafate Tab] 1 gm PO QID #120 tab Famotidine [Pepcid Tab] 20 mg PO BID #60 tab Home Medications: Ambulatory Orders Memantine [Namenda] 28 mg PO DAILY 10/13/18 Anastrozole [Arimidex] 1 mg PO DAILY 05/12/19 Galantamine ER [Razadyne ER] 16 mg PO DAILY 05/12/19 Levothyroxine Sodium 25 mcg PO DAILY 05/12/19 Solifenacin Succinate 5 mg PO DAILY 05/12/19 Cyanocobalamin [Vitamin B-12] 1,250 mcg SL DAILY 11/16/19 Doxepin HCl [Doxepin Hydrochloride] 75 mg PO BEDTIME 06/08/20 Meloxicam 15 mg PO DAILY 11/16/19 Sertraline HCl [Zoloft] 50 mg PO BEDTIME 11/16/19 Divalproex Sodium [Divalproex Sodium Dr] 125 mg PO BID 12/07/19 Famotidine [Pepcid Tab] 20 mg PO BID #60 tab 07/17/20 Ondansetron Odt [Zofran ODT] 4 mg PO Q8HR PRN #5 tab 07/17/20 Sucralfate Tab [Carafate Tab] 1 gm PO QID #120 tab 07/17/20 Additional Instructions: The patient is a 74-year-old female presented emergency room secondary to what is essentially acute gastritis. The patient has responded to GI medications well. The patient will be written for Carafate and Pepcid for the next month. She also be written for Zofran for as needed use to control any nausea or vomiting. The patient does have some significant constipation and I would recommend taking MiraLAX on a daily basis for at least the next week. She was given a dose of milk of magnesia here tonight. As an incidental finding in the work-up for the abdominal pain, it is found that the patient has pulmonary nodules, with the largest being in the left lower lobe at approximately 3.7 cm in diameter. Additional work-up is recommended based on appearance. The patient needs to follow back up with her primary care doctor towards a middle part of next week to set up follow-up for this as well as for the gastritis. She is to keep her self well-hydrated. Maintain a bland diet. ER warnings are given.
--- NOTE | 2020-07-17 03:24 | RAD ---
EXAM DESCRIPTION: Abdomen Series CLINICAL HISTORY: epigastric pain COMPARISON: None. FINDINGS: Single frontal view of the chest. Upright and supine views of the abdomen. Cardiomediastinal silhouette: Atherosclerotic calcification thoracic aorta. Heart is not enlarged. Lungs: Left lung base airspace opacity. Bones: Degenerative change of the spine. Osteoarthritic change of the hips. Leads overlie the chest and abdomen. Bowel: No dilated loops of large or small bowel. Peritoneum: No free intraperitoneal air identified. Large amount stool. Solid organs: No definite organomegaly. Calcifications: No abnormal calcifications. Other: Prior cholecystectomy. IMPRESSION: 1. Airspace opacity in the left lung base concerning for pneumonia. Continued radiographic follow-up to resolution recommended. 2. Nonobstructive bowel gas pattern. Electronically signed by: Shorty Elliott 07/17/2020 3:23 AM [facility]
--- NOTE | 2020-07-17 03:46 | CT ---
EXAM DESCRIPTION: Abdomen/Pelvis w/Contrast 07/17/2020 3:39 AM [employer] CLINICAL HISTORY: 74 years, Female, upper abd pain, elevated ddimer COMPARISON: None PROCEDURE: Contrast-enhanced images of the abdomen and pelvis were performed utilizing 2 mm slice thickness at 2 mm interval reconstruction from the lung bases to the ischial tuberosities after the administration of 100 IV contrast. No dosing amount was provided for interpretation. In addition multiplanar reformats in the coronal and sagittal plane were obtained and reviewed. An individualized dose optimization technique, Automated Exposure Control, was utilized for the performed procedure. FINDINGS: The lung bases demonstrate the presence of a subpleural nodular groundglass opacity along the anterior lateral segment of the left lower lobe not completely included in the field of imaging measuring 3.4 x 1 2 cm. Small patchy areas of subpleural opacities are seen within the right lower lobe and left lower lobe. The liver demonstrate decreased size of the left hepatic lobe. There is a cyst within the lateral segment measuring 6.5 cm on image 22. Surgical clips within the gallbladder fossa corresponding to previous cholecystectomy. The pancreas, spleen and adrenal glands demonstrate to be unremarkable, no focal lesions are noted. The kidneys demonstrate normal uptake of contrast media. No hydronephrosis and/or stones were identified. Grossly the unopacified stomach, small bowel and large bowel demonstrate to be within normal limits. Fecal residue and underdistention within the large bowel limits the evaluation. There is no evidence for bowel dilatation and/or free air. The appendix was not visualized. The urinary bladder demonstrate to be unremarkable. The uterus is absent. The aorta demonstrate to be normal. There is no retroperitoneal lymphadenopathy. There is no evidence for ascites and/or significant abnormal fluid collections. The bone windows demonstrate minimal anterior spondylosis and degenerative disc disease at L2/L4. There is posterior laminectomy at L3-L5. IMPRESSION: NODULAR OPACITY ANTERIOR LATERAL SEGMENT LEFT LOWER LOBE AND SMALL NODULAR OPACITIES WITHIN BOTH LUNG BASES, FURTHER EVALUATION WITH CT SCAN OF THE CHEST IS RECOMMENDED. HEPATIC CYST. STATUS POST CHOLECYSTECTOMY. STATUS POST HYSTERECTOMY. STATUS POST LAMINECTOMY LOWER LUMBAR SPINE. NO EVIDENCE FOR ACUTE INTRA-ABDOMINAL PROCESS. Electronically signed by: Donnie Alberto MD 07/17/2020 3:45 AM [employer]
--- NOTE | 2020-07-17 05:14 | CT ---
PROCEDURE: CT CHEST WITHOUT IV CONTRAST HISTORY: MAIN left lung field mass COMPARISON: Chest x-ray, 02/29/2020 TECHNIQUE: Multiple contiguous axial CT images of the chest were obtained without the administration of intravenous contrast. Sagittal and coronal reconstructions were performed. All CT scans at this facility use dose modulation, iterative reconstruction, and/or weight based dosing when appropriate to reduce radiation dose to as low as reasonably achievable. FINDINGS: Mediastinum: The heart and great vessels appear unremarkable aside from borderline cardiomegaly. The aorta is normal in caliber. There is no pericardial effusion. There is no pathologically enlarged adenopathy. Lungs: There is a dominant ovoid mass in the inferior lingula on image 34 measuring 2.2 x 3.7 cm in dimension. Multiple other smaller nodules are seen throughout both lungs. The largest nodule in the right involves the lower lobe on image 45 measuring overall 0.7 x 1.1 cm. There are roughly 20 nodules in each lung most of which range in size from 3 to 10 mm. No focal consolidation identified. No pleural effusion or pneumothorax. Multiple old healed left lateral rib fractures noted. Upper Abdomen: The visualized solid organs of the abdomen appear unremarkable aside from previous cholecystectomy and a 6.7 cm cyst in the left hepatic lobe. Bones and Soft Tissues: The osseous structures and soft tissues are unremarkable aside from multiple old healed left lateral rib fractures. IMPRESSION: The patient has multiple pulmonary nodules throughout both lungs the largest of which is located in the left lower lobe measuring up to 2.2 x 3.7 cm in dimension. This is concerning for metastatic disease and/or primary malignancy. Consider PET/CT and/or tissue sampling for further evaluation. Correlation with any history of a primary malignancy is also recommended. No acute cardiopulmonary process is identified. Incidental findings include borderline cardiomegaly, previous cholecystectomy and dominant 6.7 cm cyst in the liver. Electronically signed by: Hosea Carrasco MD 07/17/2020 5:12 AM [employer]
[2020-07-17] MEDS ORDERED: MAGNESIUM HYDROXIDE 30 ML UD PO ONE (05:25)
[2020-07-17] MEDS ORDERED: SUCRALFATE 1 GM/10 ML 1 GM UD PO ONE (05:26)
[2020-07-17] MEDS ORDERED: OMEPRAZOLE CAP 20 MG CAP PO ONE (05:26)
[2020-07-17 06:12] VITALS: BP 124/93; TEMP 96.9; O2SAT 97
== END 2020-07-17 06:00 | disposition home or self-care (01) ==
LOC: ER 00:49
DX: K29.00 Acute gastritis without bleeding (principal); R91.8 Other nonspecific abnormal finding of lung field; R00.1 Bradycardia, unspecified; I44.0 Atrioventricular block, first degree; I10 Essential (primary) hypertension; F03.90 Unspecified dementia, unspecified severity, without behavioral disturbance, psychotic disturbance, mood disturbance, and anxiety; Z85.9 Personal history of malignant neoplasm, unspecified; Z79.899 Other long term (current) drug therapy